=== PATIENT | female | born 1995 | race Caucasian/White ===

== ENCOUNTER 2017-06-29 12:32 | Emergency (ER) | payer OTHER ==
[2017-06-29 12:32] VITALS: BMI 33.3
[2017-06-29 13:24] VITALS: TEMP 98.1; O2SAT 100
--- NOTE | 2017-06-29 14:03 | ED PDOC ---
Arrival/HPI <Rolando Davis - Last Filed: 06/29/17 19:35> <Yuval Tirado DO - Last Filed: 06/29/17 21:02> - General Chief Complaint: Medical Clearance Time Seen by Provider: 06/29/17 12:58 - History of Present Illness Narrative History of Present Illness (Text): 06/29/17 13:35 Patient is a 22 year old female presenting from urgent care for r/o meningitis. Patient states that she woke up yesterday with some right sided neck stiffness. 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 During her shift she reports that the stiffness in got worse. She states she then began to get a headache that was located on the left side of her head. She took an Excedrin which improved her symptoms that allowed her to finish her shift. She states that she went to bed without a pillow because she believed her pillow caused her neck pain the night before. She woke up approximately 3 hours later with worsening neck pain. She did not take anything this morning for the pain. She decided to go to urgent care because of the headache. They instructed her to come directly to the ED to rule out meningitis due to positive Kernig and Brudzinski signs on exam. Patient denies f/c, n/v, d/c, sob, cp, palpitations, lightheadedness, dizziness, numbness, tingling, vision changes, gait changes or LOC. PMH: none PSH: none Social: Denies tobacco, occasional alcohol, denies illicit drug use Allergies: NKDA (Rolando Davis) Past Medical History - Provider Review Nursing Documentation Reviewed: Yes - Infectious Disease Hx of Infectious Diseases: None - Psychiatric Hx Substance Use: No - Anesthesia Hx Anesthesia: No <Rolando Davis - Last Filed: 06/29/17 19:35> Family/Social History - Physician Review Nursing Documentation Reviewed: Yes Family/Social History: Unknown Family HX Smoking Status: Never Smoked Hx Alcohol Use: Yes Hx Substance Use: No <Rolando Davis - Last Filed: 06/29/17 19:35> Allergies/Home Meds <Rolando Davis - Last Filed: 06/29/17 19:35> <Yuval Tirado DO - Last Filed: 06/29/17 21:02> Allergies/Adverse Reactions: Allergies No Known Allergies Allergy (Verified 06/29/17 13:04) Review of Systems - Physician Review All systems were reviewed & negative as marked: Yes - Review of Systems Constitutional: Normal. absent: Fevers Eyes: Normal. absent: Vision Changes, Photophobia ENT: Sore Throat. absent: Rhinorrhea, Sinus Congestion Respiratory: Normal. absent: SOB, Cough, Wheezing Cardiovascular: Normal. absent: Chest Pain, Palpitations, Edema, Syncope Gastrointestinal: Normal. absent: Abdominal Pain, Constipation, Diarrhea, Nausea, Vomiting, Appetite Changes Genitourinary Female: Normal. absent: Dysuria, Frequency Musculoskeletal: Back Pain (yesterday since resolved), Neck Pain (right sided, described as muscle tightness on right) Skin: Normal. absent: Rash, Pruritis Neurological: Headache. absent: Dizziness, Focal Weakness, Gait Changes, Disequilibrium Endocrine: Normal. absent: Diaphoresis Psychiatric: Normal <Rolando Davis - Last Filed: 06/29/17 19:35> Physical Exam Vital Signs Reviewed: Yes Temperature: Afebrile Blood Pressure: Hypertensive Pulse: Regular Respiratory Rate: Normal Appearance: Positive for: Well-Appearing (Patient sending up in room texting upon walking into room.), Non-Toxic, Comfortable Pain Distress: None Mental Status: Positive for: Alert and Oriented X 3 - Systems Exam Head: Present: Atraumatic, Normocephalic Pupils: Present: PERRL Extroacular Muscles: Present: EOMI Conjunctiva: Present: Normal Mouth: Present: Moist Mucous Membranes Pharnyx: Present: Normal. No: ERYTHEMA, EXUDATE, TONSILS ENLARGED, Muffled/ Hoarse Voice, Strider Nose (External): Present: Atraumatic. No: Abrasion Nose (Internal): Present: Normal Inspection, No Active Bleeding, Moist. No: Engorged, Edematous Neck: Present: Normal Range of Motion, Paraspinal Tenderness (right sided), Trachea Midline. No: Meningeal Signs (Negative Kernig's sign; negative Brudzinski's sign), MIDLINE TENDERNESS, Lymphadenopathy Respiratory/Chest: Present: Clear to Auscultation, Good Air Exchange. No: Respiratory Distress, Accessory Muscle Use, Wheezes, Rales, Rhonchi Cardiovascular: Present: Regular Rate and Rhythm, Normal S1, S2. No: Murmurs, Tachycardic Abdomen: Present: Tenderness, Normal Bowel Sounds. No: Distention, Peritoneal Signs, Rebound, Guarding Back: Present: Normal Inspection. No: CVA Tenderness, Midline Tenderness, Paraspinal Tenderness, Pain with Leg Raise Upper Extremity: Present: Normal Inspection, Normal ROM, NORMAL PULSES, Other (5 /5 strength b/l). No: Edema, Tenderness, Swelling Lower Extremity: Present: Normal Inspection, NORMAL PULSES, Other (5/5 strength b/l). No: Edema, CALF TENDERNESS, Tenderness, Swelling Neurological: Present: GCS=15, CN II-XII Intact, Speech Normal, Motor Func Grossly Intact, Gait Normal Skin: Present: Warm, Dry, Normal Color. No: Rashes, Diaphoretic Psychiatric: Present: Alert, Oriented x 3, Normal Insight, Normal Concentration <Rolando Davis - Last Filed: 06/29/17 19:35> Medical Decision Making <Rolando Davis - Last Filed: 06/29/17 19:35> <Yuval Tirado DO - Last Filed: 06/29/17 21:02> ED Course and Treatment: 06/29/17 14:13 Headache w/neck stiffness - r/o meningitis - Afebrile 98.1F oral - no acute distress, healthy appearing - Negative Kernig's/Brudzinski's sings - No neuro deficits - Patient given Motrin and Flexeril 06/29/17 15:30 Re-evaluation of patient Patient states that the pain in her neck was improved with Flexeril and she no longer has a headache. Patient states she is feeling well and would like to go home. DISPO: Home. Prescription for Flexeril 10mg Q8H PRN disp 15 tablets. Follow up with PMD within 1 week. (Rolando Davis) A 22 year old female with a headache and neck stiffness. In agreement with resident note, which includes further HPI details. Patient was seen and evaluated with resident, came up with plan and treatment together. 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 JUAN J has examined the patient and agrees with the treatment plan. <Yuval Tirado DO - Last Filed: 06/29/17 21:02> Disposition/Present on Arrival - Present on Arrival Any Indicators Present on Arrival: No History of DVT/PE: No History of Uncontrolled Diabetes: No Urinary Catheter: No History of Decub. Ulcer: No History Surgical Site Infection Following: None - Disposition Have Diagnosis and Disposition been Completed?: Yes Disposition Time: 15:35 Patient Plan: Discharge <Rolando Davis - Last Filed: 06/29/17 19:35> - Disposition Disposition Time: 14:40 <Yuval Tirado DO - Last Filed: 06/29/17 21:02> - Disposition Diagnosis: Headache, Acute muscle stiffness of neck Disposition: HOME/ ROUTINE Condition: IMPROVED Discharge Instructions (ExitCare): Acute Headache (ED) Prescriptions: Cyclobenzaprine [Cyclobenzaprine HCl] 10 mg PO Q8H #15 tab Referrals: [facility] [place] Follow up with primary Forms: [email or web address] (Thai)
[2017-06-29 15:58] VITALS: BP 122/79; PULSE 80; RESP 18
== END 2017-06-29 15:58 | disposition home or self-care (01) ==
LOC: ED 12:32
DX: M43.6 Torticollis (principal); R51 Headache

== ENCOUNTER 2019-02-22 08:21 | Outpatient (CLI) | payer OTHER | END 2019-02-22 08:22 | disposition home or self-care (01) | LOC: RAD 08:21 ==